=== PATIENT | female | born 1945 | race Two or more races ===

== ENCOUNTER 2020-06-16 10:54 | Inpatient (IN) | payer MEDICARE ==
[~2020-06-16] VITALS: Ht 157.5 cm; Wt 77.2 kg
[~2020-06-16 10:54] MED LIST: BIOT5TAB3 PO; CHOL100055 PO; CIP500T PO; CYAN1TAB14 PO; DOCU-94 PO; LACT10SO3 PO; MET500T PO; MULT-228 PO; PANT40TA2 PO; POTA10TA51 PO
[2020-06-16 11:59] LABS: Basophils # (auto) 0 10 ^3/uL (0-0.2); Basophils % (auto) 0.4 % (0.0-2.0); Eosinophils # (auto) 0 10 ^3/uL (0-0.8); Eosinophils % (auto) 0.3 % (0.0-7.0); Hematocrit 47.3 % (36.0-46.0); Hemoglobin 15.2 g/dL (12.2-16.2); Lymphocytes # (auto) 1.1 10 ^3/uL (0.4-5.4); Lymphocytes % (auto) 8.4 % (10.0-50.0); Mean Corpuscular Hemoglobin 28.7 pg (28.0-32.0); Mean Corpuscular Hgb Conc. 32.1 g/dL (32.0-36.0); Mean Corpuscular Volume 89.3 fL (80.0-100.0); Monocytes # (auto) 0.6 10 ^3/uL (0-1.3); Monocytes % (auto) 4.3 % (0.0-12.0); Neutrophils # (auto) 11.3 10 ^3/uL (1.6-8.6); Neutrophils % (auto) 86.6 % (37.0-80.0); Platelet Count (auto) 265 10^3/uL (140-450); Red Cell Distribution Width 14.2 % (11.8-14.3); White Blood Cell 13.1 10^3/uL (4.4-10.8)
[2020-06-16] MEDS ORDERED: SODIUM CHLORIDE 0.9% 1,000 ML IVB ONE (12:05)
[2020-06-16 12:19] LABS: Albumin 4.2 g/dL (3.4-5.0); Calcium 9.4 mg/dL (8.5-10.1); Potassium 3.8 mmol/L (3.5-5.1)
[2020-06-16 12:24] LABS: Magnesium 2.6 mg/dL (1.6-2.6)
[2020-06-16 12:27] LABS: BUN/Creatinine Ratio 14.7; Bilirubin, Total 0.8 mg/dL (0.2-1.0); Total Protein 7.8 g/dL (6.4-8.2)
[2020-06-16 12:35] LABS: INR 0.95 (0.9-1.15); Partial Thromboplastin Time 24.5 sec (23.0-31.2)
[2020-06-16] MEDS ORDERED: ONDANSETRON HCL 4 MG/2 ML VIAL IV ONE (13:15)
[2020-06-16] MEDS ORDERED: MORPHINE SULF INJ 2 MG/ML SYRINGE 1ML IV ONE (14:30)
[2020-06-16] MEDS: SODIUM CHLORIDE 0.9% 1,000 ML IV SCH (14:52)
[2020-06-16] MEDS ORDERED: ONDANSETRON HCL 4 MG/2 ML VIAL IV PRN (15:00)
[2020-06-16] MEDS ORDERED: metroNIDAZOLE 500MG/100ML 100 ML IV ONE (15:00)
[2020-06-16] MEDS ORDERED: NITROGLYCERIN 0.4 MG SL TAB SL PRN (15:00)
[2020-06-16] MEDS ORDERED: LACTULOSE 20Gm/30ML SOLN PO PRN (15:00)
[2020-06-16] MEDS ORDERED: HYDROcodone-ACET 5/325MG TAB PO PRN (15:00)
[2020-06-16] MEDS ORDERED: cefTRIAXone 1GM/50ML D5W 50 ML IV ONE (15:00)
[2020-06-16] MEDS ORDERED: MORPHINE SULF INJ 2 MG/ML SYRINGE 1ML IV PRN ×2 (15:00)
[2020-06-16] MEDS ORDERED: ALUM & MAG HYDROX-SIMETH LIQ(MAALOX) 30 ML PO PRN (15:00)
[2020-06-16] MEDS ORDERED: LORazepam 0.5 MG TAB PO PRN (15:00)
[2020-06-16] MEDS ORDERED: ACETAMINOPHEN 325 MG TAB PO PRN (15:00)
[2020-06-16] MEDS ORDERED: GASTROGRAFIN 120 ML SOL ONE (15:35)
[2020-06-16 16:03] LABS: Cholesterol 220 mg/dL (< 200); HDL Cholesterol 41 mg/dL (40-59); LDL Cholesterol 121 mg/dL (< 100); Triglycerides 361 mg/dL (< 150)
--- NOTE | 2020-06-16 19:35 | NUR ---
Telemetry admit from [facility] admitted to Telemetry unit after SBAR received. Patient oriented to Sammi lee RN, unit, room, bed, and unit policies regarding patient care and visiting hours. Patient now on continuous telemetry monitoring, tele box # 55 and telemetry reading on arrival to unit is SR 85. Patient placed on bedside oxygen, weighed by bedscale and encouraged to call if they need something. All questions and concerns addressed, patient verbalized understanding. Note: Came per wheelchair awake alert oriented x 4, placed in the bed comfortably, vital signs checked.Refused to put an NGT tube, though explained the necessity of it. Addendum: 06/17/20 at 0206 by Sara Chandra RN RN Wrong patient
[2020-06-16 20:00] VITALS: BP_SYST 115; BP_SYST 138; BP_DIAS 56; BP_DIAS 78
--- NOTE | 2020-06-16 20:00 | NUR ---
MS admit from [facility] admitted to tele/MS after SBAR received. Patient oriented to Sara Chandra, RN primary RN, unit, room, bed, and unit policies regarding patient care and visiting hours. No complaints of abd pain, nausea or vomiting at this time. Pt states she is having watery bowel movements very frequently. During admission, pt suddenly stood up and released a very watery bowel movement onto the floor. Pt advised that this will happen and is normal after gastrografin administration. Pt verbalized understanding. Patient weighed by bedscale and encouraged to call if they need something. Safety measures in place, bed in lowest position, bed rails raised x2, call light within reach. All questions and concerns addressed, patient verbalized understanding.
[2020-06-16] MEDS: metroNIDAZOLE 500MG/100ML 100 ML IV SCH ×2 (21:46→22:38)
[2020-06-16 22:00] VITALS: BP 138/78
--- NOTE | 2020-06-17 | NUR ---
NG Tube Placement Upon overview of orders, it was noted that an NG tube placement was ordered at 1400 on 06/16. Pt arrived on [facility] floor from the ED at 1941 without NG tube placed. However pt is not complaining of abd pain at this time, is having frequent bowel movements and there is no corresponding order to NG to suction noted. Hospitalist paged to clarify if NG tube placement is still necessary and if so, is suction required.
--- NOTE | 2020-06-17 00:30 | NUR ---
Spoke with Catie LR about need for NG tube placement. Physician stated that if the patient is stable and her status does not warrant NG then the RN can chose to not place it. No complaints of abd pain, bloating, nausea or vomiting at this time. Pt having multiple bowel movements, bowel sounds active throughout. Order to place NG tube held at this time. Will continue to monitor for change in status and assess for need for NG.
[2020-06-17 05:00] VITALS: BP 124/60
[2020-06-17] MEDS: metroNIDAZOLE 500MG/100ML 100 ML IV SCH ×3 (05:43→22:34)
[2020-06-17] MEDS: SODIUM CHLORIDE 0.9% 1,000 ML IV SCH ×4 (07:32→20:35)
--- NOTE | 2020-06-17 08:00 | NUR ---
Morning note Patient resting in bed with even and unlabored respirations, no distress noted. Instructed patient on POC, fall precautions and to call for assistance as needed. Patient verbalized understanding. Fall precautions in place with call light within reach.
[2020-06-17 08:40] VITALS: BP 122/68
[2020-06-17 09:00] VITALS: BP 122/68
[2020-06-17] MEDS: cefTRIAXone 1GM/50ML D5W 50 ML IV SCH (10:06)
[2020-06-17] MEDS: MULTIPLE VITAMIN TAB PO SCH (10:06)
[2020-06-17] MEDS: CYANOCOBALAMIN 500 MCG TAB PO SCH (10:07)
[2020-06-17] MEDS: CHOLECALCIFEROL (VITD3) 1,000UNIT=25mCg TAB PO SCH (10:07)
[2020-06-17] MEDS: ENOXAPARIN SOD 40 MG/0.4 ML SYRINGE SC SCH (10:07)
[2020-06-17] MEDS: PANTOPRAZOLE 40 MG TAB PO SCH (10:07)
--- NOTE | 2020-06-17 11:40 | NUR ---
was at bedside - Dr. Nelson Vanegas This RN was at bedside. POC discussed with the patient and this RN.
--- NOTE | 2020-06-17 12:20 | NUR ---
Urine specimen collected & sent to lab per MD order.
[2020-06-17 12:40] VITALS: BP 123/71
[2020-06-17 12:40] LABS: Urine Amorphous Crystal FEW /hpf (None Seen); Urine Bacteria NONE SEEN /hpf (None Seen); Urine Blood Negative /uL (Negative); Urine Hyaline Cast FEW /lpf (0 - 2); Urine Mucus FEW (None Seen); Urine Specific Gravity 1.035 (1.001-1.035); Urine WBC 13 /hpf (0 - 5)
[2020-06-17 12:48] LABS: Amphetamine Screen, Urine NEGATIVE (NEGATIVE); Barbiturate Scree,Urine NEGATIVE (NEGATIVE); Benzodiazephine Screen, Urine NEGATIVE (NEGATIVE); Cannabinoid Screen, Urine NEGATIVE (NEGATIVE); Cocaine Screen, Urine NEGATIVE (NEGATIVE); Opiate Scree,Urine NEGATIVE (NEGATIVE)
--- NOTE | 2020-06-17 13:00 | NUR ---
Patient tolerated clear liquid diet okay Patient reports mild amount of bloating. Patient denies n/v or abdominal pain. patient denies passing gas although reports she is burping. Patient reports she is ambulating in room for set time period of 15 minutes.
[2020-06-17 17:00] VITALS: BP 136/88
--- NOTE | 2020-06-17 18:30 | NUR ---
Patient tolerated clear diet okay - reports bloating Patient continues to report mild bloating after consuming clear liquid diet. Patient denies passing gas. Patient denies abdominal pain.
--- NOTE | 2020-06-17 18:33 | NUR ---
Closing note Patient resting in bed with even and unlabored respirations, no distress noted. Fall precautions in place with call light within reach.
--- NOTE | 2020-06-17 19:23 | NUR ---
Care endorsed to EMEKA Ruiz.
--- NOTE | 2020-06-17 19:43 | NUR ---
Opening Shift Note Assumed care of patient, awake and alert. No S/S of distress/SOB or pain. Pt complaining of slight abdominal cramping and bloating. No nausea or vomiting at this time. Instructed on POC and to call for assist PRN, will continue to monitor for changes Q1hr and PRN. Addendum: 06/18/20 at 0409 by Sara Chandra RN RN Pt instructed to contact this RN if symptoms worsen throughout the night. Pt verbalized understanding. Safety measures in place, bed in lowest position, bed rails raised x2, call light within reach. All needs, questions and concerns addressed at this time.
[2020-06-17 22:00] VITALS: BP 132/81
[2020-06-18] MEDS: SODIUM CHLORIDE 0.9% 1,000 ML IV SCH (04:50)
[2020-06-18 05:49] VITALS: BP 136/75
[2020-06-18] MEDS: metroNIDAZOLE 500MG/100ML 100 ML IV SCH (05:51)
--- NOTE | 2020-06-18 07:30 | NUR ---
Opening Note Received report from assembler 1st shift RN. Patient is awake, alert and oriented x4. No signs or symptoms of distress noted at this time. Patient denies pain at this time. Patient is on room air, respirations even and unlabored. Reviewed plan of care with patient, patient verbalized understanding. Bed in low and locked position, call light within reach. Will continue to monitor Q1 hour and PRN.
[2020-06-18 09:28] VITALS: BP 120/70
--- NOTE | 2020-06-18 09:45 | NUR ---
Dr. Fay Vanegas at bedside Discussing plan of care with patient and this RN. Patient to discharge home later today. Will continue to monitor Q1 hour and PRN.
[2020-06-18] MEDS: PANTOPRAZOLE 40 MG TAB PO SCH (09:53)
[2020-06-18] MEDS: CHOLECALCIFEROL (VITD3) 1,000UNIT=25mCg TAB PO SCH (09:54)
[2020-06-18] MEDS: cefTRIAXone 1GM/50ML D5W 50 ML IV SCH (09:54)
[2020-06-18] MEDS: MULTIPLE VITAMIN TAB PO SCH (09:54)
[2020-06-18] MEDS: CYANOCOBALAMIN 500 MCG TAB PO SCH (09:54)
[2020-06-18] MEDS: ENOXAPARIN SOD 40 MG/0.4 ML SYRINGE SC SCH (09:54)
[2020-06-18 11:07] VITALS: BP 120/70
--- NOTE | 2020-06-18 12:35 | NUR ---
Discharge Discharge instructions given as ordered. Encourage to follow up with [facility] discharge clinic as instructed. All questions and concerns addressed. Patient verbalized understanding. Medication reconciliation form completed and copy given to patient. IV removed with catheter intact, pressure dressing applied. Telemetry unit returned to ICU. Patient taken to vehicle via wheelchair with all personal belongings, accompanied by staff member. New prescriptions given to patient and instructed to fill at preferred pharmacy. No signs or symptoms of distress noted at this time.
== END 2020-06-18 12:25 | disposition home or self-care (01) | DRG 390 ==
LOC: ER 10:54 → EDBD 10:54 → TELE 10:55 → TELE-WESTW 19:42
PROVIDERS: ADMIT Hospitalist; ATTEND Family Medicine
DX: K56.600 Partial intestinal obstruction, unspecified as to cause (principal); E11.9 Type 2 diabetes mellitus without complications; E86.0 Dehydration; K21.9 Gastro-esophageal reflux disease without esophagitis; I10 Essential (primary) hypertension; Z85.038 Personal history of other malignant neoplasm of large intestine; Z85.3 Personal history of malignant neoplasm of breast; Z90.12 Acquired absence of left breast and nipple; Z82.49 Family history of ischemic heart disease and other diseases of the circulatory system; Z83.3 Family history of diabetes mellitus; Z90.49 Acquired absence of other specified parts of digestive tract
CPT/HCPCS: 36415; 71045; 74176; 74250; 80053; 80061; 80307; 81001; 82150; 83036; 83690; 83735; 84484; 85025; 85610; 85730; 87040; 87086; 93005; 96361; 96365; 96368; 96375; G0378; J0696; J2405; J3490

== ENCOUNTER → 2020-08-17 | Outpatient (CLI) | payer MEDICARE | END | disposition home or self-care (01) | LOC: LAB 10:08 | PROVIDERS: ATTEND Internal Medicine Nephrology | DX: E03.9 Hypothyroidism, unspecified (principal) | CPT/HCPCS: 36415; 84439; 84443 ==

== ENCOUNTER → 2020-12-11 | Outpatient (CLI) | payer MEDICARE | END | disposition home or self-care (01) | LOC: LAB 09:00 | PROVIDERS: ATTEND Internal Medicine Nephrology | DX: E03.9 Hypothyroidism, unspecified (principal) | CPT/HCPCS: 36415; 84439; 84443 ==

== ENCOUNTER 2021-05-24 23:59 | Emergency (ER) | payer MEDICARE, OTHER ==
[~2021-05-24] VITALS: Ht 157.5 cm; Wt 72.6 kg
[2021-05-25 01:13] LABS: Basophils # (auto) 0 10 ^3/uL (0-0.2); Basophils % (auto) 0.3 % (0.0-2.0); Eosinophils # (auto) 0 10 ^3/uL (0-0.8); Eosinophils % (auto) 0.3 % (0.0-7.0); Hematocrit 44.4 % (36.0-46.0); Lymphocytes # (auto) 1.2 10 ^3/uL (0.4-5.4); Lymphocytes % (auto) 10.3 % (10.0-50.0); Mean Corpuscular Hemoglobin 29.7 pg (28.0-32.0); Mean Corpuscular Hgb Conc. 33.7 g/dL (32.0-36.0); Mean Corpuscular Volume 87.9 fL (80.0-100.0); Monocytes # (auto) 0.5 10 ^3/uL (0-1.3); Monocytes % (auto) 4.5 % (0.0-12.0); Neutrophils # (auto) 9.6 10 ^3/uL (1.6-8.6); Neutrophils % (auto) 84.6 % (37.0-80.0); Nucleated Red Blood Cells % 0.1 %; Red Blood Cells 5.05 10^6/uL (4.0-5.20); Red Cell Distribution Width 13.8 % (11.8-14.3); White Blood Cell 11.3 10^3/uL (4.4-10.8)
[2021-05-25 01:32] LABS: INR 0.95 (0.9-1.15); Partial Thromboplastin Time 23.7 sec (23.0-31.2)
[2021-05-25 01:36] LABS: Alanine Aminotransferase 26 U/L (13-56); Amylase 38 U/L (25-115); Anion Gap 10 (5-15); Aspartate Aminotransferase 22 U/L (15-37); BUN/Creatinine Ratio 19.2; Blood Urea Nitrogen 14 mg/dL (7-18); Calcium 9.5 mg/dL (8.5-10.1); Carbon Dioxide 23 mmol/L (21-32); Chloride 105 mmol/L (98-107); GFR African American 100 mL/min; GFR Non-African American 82 mL/min; Glucose 155 mg/dL (74-106); Lipase 47 U/L (73-393); Magnesium 2.4 mg/dL (1.6-2.6); Potassium 3.5 mmol/L (3.5-5.1); Sodium 138 mmol/L (136-145)
[2021-05-25 01:41] LABS: Alkaline Phosphatase 98 U/L (45-117); Bilirubin, Total 0.6 mg/dL (0.2-1.0); Total Protein 7.8 g/dL (6.4-8.2)
[2021-05-25] MEDS ORDERED: SODIUM CHLORIDE 0.9% 1,000 ML IV ONE (03:00)
[2021-05-25] MEDS ORDERED: cloNIDine HCL 0.1 MG TAB PO ONE (06:45)
[2021-05-25 08:34] LABS: Urine Bacteria NONE SEEN /hpf (None Seen); Urine Blood Negative /uL (Negative); Urine Mucus FEW (None Seen); Urine Specific Gravity 1.017 (1.001-1.035); Urine WBC 6 /hpf (0 - 5)
[2021-05-25 09:30] VITALS: BP 98/57
== END 2021-05-25 10:48 | disposition home or self-care (01) ==
LOC: ER 23:59 → EDBD 23:59 → ER 05-25 10:48
DX: N39.0 Urinary tract infection, site not specified (principal); I10 Essential (primary) hypertension; Z90.49 Acquired absence of other specified parts of digestive tract; Z79.2 Long term (current) use of antibiotics; Z79.899 Other long term (current) drug therapy
CPT/HCPCS: 36415; 71045; 74176; 80053; 81001; 82150; 83690; 83735; 84484; 85025; 85610; 85730; 93005; 96360; 99285; J7030